=== PATIENT | female | born 2000 | race Caucasian/White ===

== ENCOUNTER 2024-07-07 12:55 | Emergency (ER) | payer MEDICAID ==
[~2024-07-07] VITALS: Ht 165.1 cm; Wt 115.0 kg
[2024-07-07] MEDS: SODIUM CHLORIDE 0.9% 1,000 ML IV ONE (13:30)
[2024-07-07] MEDS: PANTOPRAZOLE 40 MG/10 ML VIAL INJ IV ONE (13:30)
[2024-07-07] MEDS: DICYCLOMINE HCL (10MG/ML) 2 ML AMPULE IM ONE (13:30)
[2024-07-07 13:54] LABS: Basophils # (auto) 0 10 ^3/uL (0-0.2); Eosinophils # (auto) 0 10 ^3/uL (0-0.8); Eosinophils % (auto) 0.4 % (0.0-7.0); Monocytes # (auto) 0.6 10 ^3/uL (0-1.3); Monocytes % (auto) 5.7 % (0.0-12.0)
[2024-07-07 13:57] LABS: Basophils % (auto) 0.4 % (0.0-2.0); Hematocrit 42.3 % (36.0-46.0); Hemoglobin 14.9 g/dL (12.2-16.2); Lymphocytes # (auto) 2.7 10 ^3/uL (0.4-5.4); Lymphocytes % (auto) 27.6 % (10.0-50.0); Mean Corpuscular Hgb Conc. 35.2 g/dL (32.0-36.0); Mean Corpuscular Volume 88.1 fL (80.0-100.0); Neutrophils # (auto) 6.4 10 ^3/uL (1.6-8.6); Neutrophils % (auto) 65.9 % (37.0-80.0); Platelet Count (auto) 457 10^3/uL (140-450); Red Cell Distribution Width 13.6 % (11.8-14.3); White Blood Cell 9.8 10^3/uL (4.4-10.8)
[2024-07-07 14:02] LABS: Urine Bacteria None Seen /hpf (None Seen)
[2024-07-07 14:14] LABS: Alanine Aminotransferase 31 U/L (7-40); Alkaline Phosphatase 83 U/L (46-116); Anion Gap 9 (5-15); BUN/Creatinine Ratio 7.7 (10.0-20.0); Blood Urea Nitrogen 6 mg/dL (9-23); Calcium 10.2 mg/dL (8.7-10.4); Carbon Dioxide 22 mmol/L (20-31); Chloride 108 mmol/L (98-107); Glucose 100 mg/dL (74-106); Potassium 3.5 mmol/L (3.5-5.1); Sodium 139 mmol/L (136-145)
[2024-07-07 14:15] LABS: Albumin 5.1 g/dL (3.2-4.8); Aspartate Aminotransferase 13 U/L (13-40); Bilirubin, Total 0.8 mg/dL (0.2-1.0); Total Protein 7.7 g/dL (5.7-8.2)
[2024-07-07 14:35] LABS: Urine Blood Negative /uL (Negative); Urine Clarity Clear (Clear); Urine Color Yellow (Yellow); Urine Mucus FEW (None Seen); Urine Protein, UAD TRACE (Negative); Urine Specific Gravity 1.023 (1.001-1.035); Urine Urobilinogen Normal (Negative); Urine WBC 1 /hpf (0 - 5); Urine pH 5.5 (5.0-9.0)
[2024-07-07] MEDS ORDERED: OMEP-434 PO (19:44)
[2024-07-07] MEDS ORDERED: METR-344 PO (19:44)
[2024-07-07] MEDS ORDERED: CIPR-173 PO (19:44)
[2024-07-07] MEDS ORDERED: DICY10CA PO (19:44)
[2024-07-07 20:30] VITALS: BP 147/84; PULSE 70; RESP 18; TEMP 98.3; O2SAT 97
== END 2024-07-07 20:30 | disposition home or self-care (01) ==
LOC: ER 12:55
DX: K92.2 Gastrointestinal hemorrhage, unspecified (principal); R10.2 Pelvic and perineal pain; Z98.890 Other specified postprocedural states
CPT/HCPCS: 36415; 74176; 80053; 81001; 84702; 85025